=== PATIENT | female | born 1990 | race Caucasian/White ===

== ENCOUNTER 2017-04-02 20:31 | Emergency (ER) | payer MEDICAID, OTHER ==
[2017-04-02 20:41] VITALS: RESP 18
[2017-04-02 21:27] LABS: HCG,QUALITATIVE URINE NEGATIVE (NEGATIVE)
[2017-04-02 21:28] LABS: SQUAMOUS EPITHIAL 1 /hpf (0-5); URINE BILIRUBIN NEGATIVE (NEGATIVE); URINE BLOOD NEGATIVE (NEGATIVE); URINE CLARITY Clear (Clear); URINE COLOR Colorless (YELLOW); URINE GLUCOSE (UA) NORMAL (Normal); URINE LEUKOCYTE ESTERASE NEG Leu/uL (Negative); URINE NITRATE NEGATIVE (NEGATIVE); URINE PROTEIN NEGATIVE (NEGATIVE); URINE UROBILINOGEN NORMAL mg/dL (0.2-1.0)
[2017-04-02 21:58] LABS: BASO # 0.1 K/uL (0.0-0.2); BASO % 0.7 % (0.0-2.0); EOS % 0.6 % (0.0-4.0); HEMOGLOBIN 13.6 g/dL (11.0-16.0); LYMPH # 2.2 K/uL (1.0-4.3); LYMPH % 31.5 % (20.0-40.0); MEAN CELL VOLUME 86.1 fL (81.0-99.0); MEAN CORPUSCULAR HEMOGLOBIN 29.7 pg (27.0-31.0); MEAN CORPUSCULAR HGB CONC 34.5 g/dL (33.0-37.0); MEAN PLATELET VOLUME 9.8 fL (7.2-11.7); MONO # 0.4 K/uL (0.0-0.8); MONO % 5.6 % (0.0-10.0); NEUT # 4.4 K/uL (1.8-7.0); NEUT % 61.6 % (50.0-75.0); NRBC % 0.1 % (0.0-2.0); RBC 4.57 Mil/uL (3.80-5.20); RED CELL DISTRIBUTION WIDTH 12.8 % (11.5-14.5); WHITE BLOOD COUNT 7.1 K/uL (4.8-10.8)
[2017-04-02 22:04] LABS: ALBUMIN 4.1 g/dL (3.5-5.0)
[2017-04-02 22:07] LABS: GFR AFRICAN-AMERICAN > 60; GFR NON-AFRICAN AMERICAN > 60
[2017-04-02 22:08] LABS: ALB/GLOB RATIO 1.4 (1.0-2.1); ALT/SGPT 22 U/L (9-52); AST/SGOT 17 U/L (14-36); BLOOD UREA NITROGEN 12 mg/dL (7-17)
[2017-04-02 22:40] LABS: CALCIUM 8.5 mg/dl (8.6-10.4)
--- NOTE | 2017-04-02 22:40 | C.PDOC ---
History Of Present Illness 26 year old female presents to the ED with complaints of intermittent cramping mid-suprapubic pain for two days. Patient states pain is non-radiating and denies dysuria, hematuria, vaginal discharge, nausea, vomiting, diarrhea, of fever. Time Seen by Provider: 04/02/17 21:02 Chief Complaint (Nursing): Female Genitourinary History Per: Patient History/Exam Limitations: no limitations Onset/Duration Of Symptoms: Days (2 days), Intermittent Episodes Current Symptoms Are (Timing): Still Present Location Of Pain/Discomfort: Suprapubic Radiation Of Pain To:: None Quality Of Discomfort: Cramping Associated Symptoms: denies: Fever, Chills, Nausea, Vomiting, Diarrhea, Urinary Symptoms Recent travel outside of the [place]: No Abnormal Vaginal Bleeding: No Past Medical History Reviewed: Historical Data, Nursing Documentation, Vital Signs Vital Signs: Last Vital Signs Temp 97.8 F 04/02/17 23:49 Pulse 59 L 04/02/17 23:49 Resp 18 04/02/17 23:49 BP 113/68 04/02/17 23:49 Pulse Ox 99 04/02/17 23:50 Family History: States: Unknown Family Hx, Hypertension (with renal insufficiency) - Social History Hx Tobacco Use: No Hx Alcohol Use: No Hx Substance Use: No - Immunization History Hx Tetanus Toxoid Vaccination: No Hx Influenza Vaccination: No Hx Pneumococcal Vaccination: No Review Of Systems Constitutional: Negative for: Fever, Chills Cardiovascular: Negative for: Chest Pain Respiratory: Negative for: Shortness of Breath Gastrointestinal: Positive for: Abdominal Pain. Negative for: Nausea, Vomiting , Diarrhea Genitourinary: Negative for: Dysuria, Hematuria, Vaginal Discharge Physical Exam - Physical Exam Appears: Non-toxic, No Acute Distress Skin: Warm, Dry Head: Atraumatic Eye(s): bilateral: Normal Inspection, PERRL, EOMI Oral Mucosa: Moist Neck: Supple Chest: Symmetrical, No Deformity Cardiovascular: Rhythm Regular Respiratory: Normal Breath Sounds, No Rhonchi, No Wheezing Gastrointestinal/Abdominal: Soft, Tenderness (mild right and mid-suprapubic tenderness ), No Distention, No Guarding, No Rebound, Other (Negative McBurney's ) Back: Normal Inspection Pelvic: Normal External Exam, No Vaginal Bleeding, No Cervical Motion Tenderness , No Adnexal Tenderness, Other (normal vaginal discharge ) Neurological/Psych: Oriented x3 ED Course And Treatment - Laboratory Results Result Diagrams: 04/02/17 21:52 04/02/17 21:52 O2 Sat by Pulse Oximetry: 99 (room air ) Pulse Ox Interpretation: Normal - CT Scan/US US Pelvis Complete, Transabdominal Other Rad Studies (CT/US): Read By Radiologist, Radiology Report Reviewed CT/US Interpretation: FINDINGS: Uterus/cervix: Bicornuate uterus. Uterus measures 7.3 x 4.5 x 3.3 cm in size. No myometrial mass. Endometrium: 0.9 cm in thickness. Right ovary: 3.9 x 2.6 x 3.6 cm in size. No mass. Small follicles. Normal flow. Left ovary: 4.1 x 2.9 x 3.8 cm in size. 1.9 x 1.1 x 1.5 cm septated hypoechoic lesion with internal. echoes. Small follicles. Normal flow. Free fluid: Small free fluid within pelvis. Bladder: Unremarkable as visualized. IMPRESSION: 1. Probable hemorrhagic LEFT ovarian cyst. Recommend sonographic followup in 6 weeks to. ensure resolution and exclude other etiologies. 2. Incidental/non-acute findings are described above. Progress Note: U and UcG were performed that were negative and patient given Tylenol. Patient notes still experiencing pain and a Pelvic US was ordered. 2340: Pt reports moderate pain improvement prior to discharge, abd soft NT, pt remains stable. Labs and US reviewed and plan of treatment d/w pt who agrees with plan. Return precautions explained and understood by pt. Reassessment Condition: Improved Disposition - Disposition Disposition: HOME/ ROUTINE Disposition Time: 23:46 Condition: STABLE Additional Instructions: Please follow up witrh PSYCHIATRIC CLINICAL NURSE SPECIALIST Motrin for pain Return to ER if worse Instructions: Ovarian Cyst (ED) Forms: [facility] (Salvadorean) - Clinical Impression Clinical Impression: Ovarian cyst, Suprapubic pain - Scribe Statement The provider has reviewed the documentation as recorded by the Scribe Ira Busby All medical record entries made by the Scribe were at my direction and personally dictated by me. I have reviewed the chart and agree that the record accurately reflects my personal performance of the history, physical exam, medical decision making, and the department course for this patient. I have also personally directed, reviewed, and agree with the discharge instructions and disposition.
--- NOTE | 2017-04-02 23:33 | US ---
EXAM: US Pelvis Complete, Transabdominal CLINICAL HISTORY: 26 years old, female; Pain; Pelvic pain; Additional info: Suprapubic pain TECHNIQUE: Real-time transabdominal pelvic ultrasound (complete) with image documentation. COMPARISON: No relevant prior studies available. FINDINGS: Uterus/cervix: Bicornuate uterus. Uterus measures 7.3 x 4.5 x 3.3 cm in size. No myometrial mass. Endometrium: 0.9 cm in thickness. Right ovary: 3.9 x 2.6 x 3.6 cm in size. No mass. Small follicles. Normal flow. Left ovary: 4.1 x 2.9 x 3.8 cm in size. 1.9 x 1.1 x 1.5 cm septated hypoechoic lesion with internal echoes. Small follicles. Normal flow. Free fluid: Small free fluid within pelvis. Bladder: Unremarkable as visualized. IMPRESSION: 1. Probable hemorrhagic LEFT ovarian cyst. Recommend sonographic followup in 6 weeks to ensure resolution and exclude other etiologies. 2. Incidental/non-acute findings are described above. EXAM: US Pelvis, Transvaginal CLINICAL HISTORY: 26 years old, female; Pain; Pelvic pain; Additional info: Suprapubic pain TECHNIQUE: Real-time transvaginal pelvic ultrasound (complete) with image documentation. Transvaginal imaging was used for better evaluation of the endometrium and adnexa. COMPARISON: No relevant prior studies available. FINDINGS: Uterus/cervix: Bicornuate uterus. Uterus measures 7.3 x 4.5 x 3.3 cm in size. No myometrial mass. Endometrium: 0.9 cm in thickness. Right ovary: 3.9 x 2.6 x 3.6 cm in size. No mass. Small follicles. Normal flow. Left ovary: 4.1 x 2.9 x 3.8 cm in size. 1.9 x 1.1 x 1.5 cm septated hypoechoic lesion with internal echoes. Small follicles. Normal flow. Free fluid: Small free fluid within pelvis. Bladder: Empty bladder which cannot be evaluated with this probe.
[2017-04-02 23:49] VITALS: BP 113/68; PULSE 59; TEMP 97.8
[2017-04-02 23:51] VITALS: O2SAT 99
== END 2017-04-02 23:56 | disposition home or self-care (01) ==
LOC: C.ER 20:31
DX: N83.202 Unspecified ovarian cyst, left side (principal)

== ENCOUNTER 2017-12-13 09:38 | Emergency (ER) | payer MEDICAID, OTHER ==
[2017-12-13 09:52] VITALS: BP 126/82; PULSE 62; RESP 16; TEMP 98.1; O2SAT 98
--- NOTE | 2017-12-13 10:14 | C.PDOC ---
History Of Present Illness 27 y/o F p/w R shoulder pain x 2 days. Patient was in shower, unsure how she moved but suddenly had pain in the R posterior shoulder which is worse with movement or palpation. Denies numbness or motor weakness of arm. Denies fever, fall, rib pain. Has not taken any medications. LMP 11/10. Time Seen by Provider: 12/13/17 09:57 Chief Complaint (Nursing): Upper Extremity Problem/Injury Past Medical History Vital Signs: Last Vital Signs Temp 98.1 F 12/13/17 09:49 Pulse 62 12/13/17 09:49 Resp 16 12/13/17 09:49 BP 126/82 12/13/17 09:49 Pulse Ox 98 12/13/17 10:14 Family History: States: Hypertension (with renal insufficiency) - Social History Hx Tobacco Use: No Hx Alcohol Use: No Hx Substance Use: No - Immunization History Hx Tetanus Toxoid Vaccination: No Hx Influenza Vaccination: No Hx Pneumococcal Vaccination: No Review Of Systems Except As Marked, All Systems Reviewed And Found Negative. Constitutional: Negative for: Fever Respiratory: Negative for: Shortness of Breath Physical Exam - Physical Exam Additional Physical Exam Comments: Gen: Lying still in stretcher in NAD Head: NC/AT Eyes: No scleral icterus ENT: MMM Neck: No midline tenderness Chest: No tenderness CV: Regular rate. Radial pulse 2+ Back: No midline tenderness. Tenderness to posterior R shoulder. Skin: No rash Neuro: Sensation to light touch intact in hand and deltoid. Motor intact in fingers, wrist, elbow, shoulder Extremities: As above ED Course And Treatment O2 Sat by Pulse Oximetry: 98 Medical Decision Making Medical Decision Making: HISTORY: shoulder pain COMPARISON: No prior. FINDINGS: BONES: No acute fracture. JOINTS: Unremarkable. SOFT TISSUES: Normal. OTHER FINDINGS: None. IMPRESSION: No demonstrated fracture or dislocation. Continue NSAIDs, muscle relaxants as necessary if not required to be alert, f/u Ortho, return to ED for worsening pain, fever, inability to range, or any other problem. Disposition - Disposition Referrals: Jason Miller MD [Staff Provider] - [facility] [Outside] Disposition: HOME/ ROUTINE Disposition Time: 10:56 Condition: STABLE Prescriptions: Famotidine [Pepcid] 1 tab PO BID #14 tab Ibuprofen [Motrin] 600 mg PO Q6 #25 tab Methocarbamol [Robaxin-750] 1 tab PO Q8H #12 tablet Instructions: Shoulder Pain (DC) Forms: [facility] (Danish) - Clinical Impression Clinical Impression: Shoulder pain
--- NOTE | 2017-12-13 10:30 | RAD ---
PROCEDURE: Radiographs of the Right Shoulder HISTORY: shoulder pain COMPARISON: No prior. FINDINGS: BONES: No acute fracture. JOINTS: Unremarkable. SOFT TISSUES: Normal. OTHER FINDINGS: None. IMPRESSION: No demonstrated fracture or dislocation.
== END 2017-12-13 11:35 | disposition home or self-care (01) ==
LOC: C.ER 09:38
DX: M25.511 Pain in right shoulder (principal)
CPT/HCPCS: 73030; 96372; 99285; J1885